=== PATIENT | male | born 1975 ===

== ENCOUNTER 2017-05-12 08:16 | Outpatient (CLI) | payer BC ==
--- NOTE | 2017-05-12 09:28 | Ultrasound Report ---
Bilateral mammogram and sonogram left breast: History: Gynecomastia. Pain left breast. Findings: Predominance of adipose tissue bilaterally. Left breast appears larger than right. Predominance of adipose tissue bilaterally. Bilaterally the pectoralis muscles appears prominent. Multiple scattered foci of calcification is noted at the pectoralis muscle. Appeared to be benign. Sonographic examination of the left breast reveals no cystic or solid mass. Impression: Probably benign calcifications. Gynecomastia. No mass. 6 month followup with mammogram recommended. BI-RADS CATEGORY: 3 = Probably benign ACR BI-RADS MAMMOGRAPHIC CODES: 0 = Needs additional imaging evaluation; 1 = Negative; 2 = Benign; 3 = Probably benign; 4 = Suspicious; 5 = Malignant; 6 = Known biopsy-proven malignancy COMMENT: 1. Dense breast tissue, i.e., adenosis, fibrocystic changes, etc., may obscure an underlying neoplasm. 2. Approximately 10% of cancers are not detected with mammography. 3. A negative mammography report should not delay biopsy if a clinically suspicious mass is present. COMMENT: Patient follow-up letters are generated in [employer] [facility]. BI-RADS CATEGORY: 3 = Probably benign ACR BI-RADS MAMMOGRAPHIC CODES: 0 = Needs additional imaging evaluation; 1 = Negative; 2 = Benign; 3 = Probably benign; 4 = Suspicious; 5 = Malignant; 6 = Known biopsy-proven malignancy COMMENT: 1. Dense breast tissue, i.e., adenosis, fibrocystic changes, etc., may obscure an underlying neoplasm. 2. Approximately 10% of cancers are not detected with mammography. 3. A negative mammography report should not delay biopsy if a clinically suspicious mass is present. COMMENT: Patient follow-up letters are generated in [employer] [facility].
== END 2017-05-12 08:17 | disposition home or self-care (01) ==
LOC: SPVWC 08:16
PROVIDERS: ATTEND Physician Assistant Medical
DX: N62 Hypertrophy of breast (principal); R92.1 Mammographic calcification found on diagnostic imaging of breast
CPT/HCPCS: 77066